=== PATIENT | male | born 1975 | race African-American/Black ===

== ENCOUNTER → 2016-05-17 | Day surgery (SDC) | payer BC ==
[~2016-05-17] MED LIST: IBUPROFEN PO; NORCO 10-325 TA1 TAB PO; SKELAXIN PO; XANAX1 MG PO
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
== END | disposition home or self-care (01) ==
LOC: CCSC 09:40
DX: M51.16 Intervertebral disc disorders with radiculopathy, lumbar region (principal)
CPT/HCPCS: J1040; J2250

== ENCOUNTER → 2016-10-25 | Day surgery (SDC) | payer BC ==
--- NOTE | ~2016-10-25 | OR ---
Unit #: [id number] #: [id number] Patient: ALEXI SORTO [id number] [address] [place], [place] [address] [id number] O MR#: [id number] NAME: ALEXI SORTO. ROOM: Date of Procedure: 10/25/2016 Admission Date: 10/25/2016 Surgeon: Sung Leonardo M.D. : 1975 Attending Physician: Sung Leonardo M.D. Primary Care Physician: Fer Magallon M.D. OPERATIVE REPORT PREOPERATIVE DIAGNOSES Back pain, radiculopathy, degenerative disk disease. POSTOPERATIVE DIAGNOSES Back pain, radiculopathy, degenerative disk disease. PROCEDURE PERFORMED Lumbar epidural steroid injection with intravenous sedation and fluoroscopic guidance for needle localization. INDICATIONS FOR PROCEDURE The patient is a 41-year-old male with back and lower extremity pain due to disk disease most significant at the L4-L5 level, there is also abnormal L5-S1. The patient done well with epidural steroid injections in the past. Last single injection was done in 05/2016, 100% settling of his pain for about 2 months and graduate return over the last month or so, it has been significant. Plan is to repeat epidural steroid injection. DESCRIPTION OF PROCEDURE The patient was placed in a seated position. Standard monitors were applied. 2 mg of Versed were given for sedation and anxiolysis, which were adequate. Vital signs remained stable. Sterile prep and drape then of lumbar area was performed. The skin then at the L4-L5 level was localized with 1% lidocaine. An 18-gauge [employer] needle was then advanced via loss of resistance technique and fluoroscopic guidance in toward the epidural space. After confirming proper positioning with fluoroscopy and radiographic contrast, 80 mg of Depo-Medrol and 4 mL of 0.125% bupivacaine were deposited. The patient tolerated the procedure otherwise well and was discharged to the recovery room in stable condition. Dictated by... Marilee Valderrama/luis miguel TD: 10/25/2016 12:41 JOB #: [id number] Unit #: [id number] #: [id number] Patient: ALEXI SORTO OPERATIVE REPORT Page 1 of 1 X Sung Leonardo MD X PROCEDURE OPERATIVE NOTE
== END | disposition home or self-care (01) ==
LOC: CCSC 10:32
DX: M51.16 Intervertebral disc disorders with radiculopathy, lumbar region (principal); F41.9 Anxiety disorder, unspecified; Z79.899 Other long term (current) drug therapy
CPT/HCPCS: J1040; J2250